=== PATIENT | female | born 2000 | race Two or more races ===

== ENCOUNTER 2021-02-11 20:57 | Emergency (ER) | payer SELFPAY ==
[~2021-02-11] VITALS: Ht 154.9 cm; Wt 75.7 kg
[2021-02-11 23:17] VITALS: BP 134/88
== END 2021-02-11 23:45 | disposition home or self-care (01) ==
LOC: ER 21:00
DX: R09.82 Postnasal drip (principal); Z20.822 Contact with and (suspected) exposure to COVID-19
CPT/HCPCS: 36415; 87426

== ENCOUNTER 2021-02-25 09:19 | Emergency (ER) | payer SELFPAY ==
[~2021-02-25] VITALS: Ht 157.5 cm; Wt 81.6 kg
[2021-02-25 09:58] LABS: Urine Bacteria NONE SEEN /hpf (None Seen); Urine Blood Negative /uL (Negative); Urine Specific Gravity 1.021 (1.001-1.035); Urine WBC 11 /hpf (0 - 5)
[2021-02-25 10:59] VITALS: BP 137/82
[2021-02-25] MEDS ORDERED: cefTRIAXone SOD 1,000 MG VL IM ONE (13:00)
== END 2021-02-25 13:07 | disposition home or self-care (01) ==
LOC: ER 09:19
DX: G44.209 Tension-type headache, unspecified, not intractable (principal); G43.809 Other migraine, not intractable, without status migrainosus; J06.9 Acute upper respiratory infection, unspecified; N30.00 Acute cystitis without hematuria; Z20.822 Contact with and (suspected) exposure to COVID-19
CPT/HCPCS: 36415; 71046; 81001; 81025; 87426; 96372; 99284; J0696